=== PATIENT | male | born 1965 | race African-American/Black ===

== ENCOUNTER 2017-12-14 17:34 | Emergency (ER) | payer SELFPAY ==
[~2017-12-14] VITALS: Ht 188 cm; Wt 95.3 kg
[2017-12-14 17:41] VITALS: BP 137/87
--- NOTE | 2017-12-14 17:46 | NUR ---
PATIENT AMBULATED TO BED 10.
--- NOTE | 2017-12-14 18:00 | NUR ---
52M SIGNIFICANT OTHER WITH C/O DIARRHEA X 3-4 DAYS. PT REPORTS OF APPROX 3-4 EPISODES OF DIARRHEA. PT DENIES ANY BLOOD IN DIARRHEA. PT ALSO REPORTS OF 5/10 INTERMITTENT BL LOWER ABD PAIN. PT DENIES ANY N/V. PT REPORT OF EATING "BEEFY JERKY" APPROX 3-4 DAYS AGO AND SINCE THEN BEEN HAVING DIARRHEA. PT IS AOX4 WITH STEADY GAIT. RR ARE EVEN AND UNLABORED. MUCOUS MEMBRANES MOIST. NO ACUTE DISTRESS. ER HEEL SEAT FLAP STAPLER TIMPLE BY BEDSIDE EXAMINING PT.
[2017-12-14 18:15] VITALS: BP 132/82
--- NOTE | 2017-12-14 18:15 | NUR ---
Patient discharged with v/s stable. Written and verbal after care instructions given and explained. Patient alert, oriented and verbalized understanding of instructions. Ambulatory with steady gait. All questions addressed prior to discharge. ID band removed. Patient advised to follow up with PMD. Rx of Lomotil and Cipro given. Patient educated on indication of medication including possible reaction and side effects. Opportunity to ask questions provided and answered.
== END 2017-12-14 18:15 | disposition home or self-care (01) ==
LOC: MED 17:34
DX: K52.9 Noninfective gastroenteritis and colitis, unspecified (principal)
CPT/HCPCS: 99283

== ENCOUNTER 2018-02-03 02:01 | Emergency (ER) | payer SELFPAY ==
[~2018-02-03] VITALS: Ht 188 cm; Wt 97.1 kg
[2018-02-03 02:10] VITALS: BP 162/98
[2018-02-03] MEDS ORDERED: LIDOCAINE 2% 1000 MG/50 ML VIAL INJ ONE (02:10)
--- NOTE | 2018-02-03 02:10 | NUR ---
PATIENT AMBULATED TO ER BED 5.
--- NOTE | 2018-02-03 02:15 | NUR ---
PATIENT IS A 53 Y/O MALE WHO PRESENTS TO THE ED C/O LACERATION. PT STATES THAT HE WAS WORKING AND STUCK HIS HAND IN A RECYCLING MACHINE AND CUT LEFT RING FINGER. PT REPORTS 9/10 ACHING LEFT RING FINGER PAIN THAT DOES NOT RADIATE. NO OBVIOUS DEFORMITY, CONTROLLED BLEEDING NOTED, 1.75 INCH LACERATION NOTED. PT DENIES CP, SOB, N/V/D. PT AAOX4, RR EVEN/UNLABORED. PT REPOSITIONED FOR COMFORT, BED IN LOWEST POSITION. ER MD DR. DIEGO NOTIFIED. WILL CONTINUE TO MONITOR.
--- NOTE | 2018-02-03 02:26 | NUR ---
Note [email or web address] in EDM - 02/03/18 at 0314 by [email or web address] Patient discharged with v/s stable. Written and verbal after care instructions given and explained. Patient alert, oriented and verbalized understanding of instructions. Ambulatory with steady gait. All questions addressed prior to discharge. ID band removed. Patient advised to follow up with PMD. Rx of MOTRIN 800MG given. Patient educated on indication of medication including possible reaction and side effects. Opportunity to ask questions provided and answered.
[2018-02-03] MEDS ORDERED: NEOMYCIN/POLYMYXIN/BACITRACIN 0.9 GM/1 PKT TP ONE ×2 (02:58→03:09)
[2018-02-03 03:10] VITALS: BP 158/83
== END 2018-02-03 03:10 | disposition home or self-care (01) ==
LOC: MED 02:01
DX: S61.215A Laceration without foreign body of left ring finger without damage to nail, initial encounter (principal); X58.XXXA Exposure to other specified factors, initial encounter; Y93.89 Activity, other specified; Y92.89 Other specified places as the place of occurrence of the external cause; Y99.8 Other external cause status
CPT/HCPCS: 12001; 90471; 90715; 99283; J2001